=== PATIENT | male | born 1985 | race Caucasian/White ===

== ENCOUNTER 2021-08-08 15:40 | Inpatient (IN) | payer MEDICAID, OTHER ==
[~2021-08-08] VITALS: Ht 177.8 cm; Wt 93.8 kg
[2021-08-08] MEDS ORDERED: MIDAZOLAM DRIP 50 mg/50mL 50 ML IV ONE (15:43)
[2021-08-08] MEDS ORDERED: ETOMIDATE (2MG/ML) 20ML VIAL IV ONE ×3 (15:45→16:00)
[2021-08-08] MEDS ORDERED: MIDAZOLAM DRIP 50 mg/50mL 50 ML IV SCH (15:45)
[2021-08-08] MEDS ORDERED: fentaNYL Drip 2500mCg/250mlNS 250 ML IV SCH (15:45)
[2021-08-08] MEDS ORDERED: SUCCINYLCHOLINE CHLORIDE 20 MG/ML 10ML VIAL IV ONE ×2 (15:51→16:00)
[2021-08-08] MEDS: fentaNYL Drip 2500mCg/250mlNS 250 ML IV SCH (16:00)
[2021-08-08] MEDS: MIDAZOLAM DRIP 50 mg/50mL 50 ML IV SCH (16:00)
[2021-08-08 16:16] LABS: Hematocrit 49.6 % (41.0-53.0); Hemoglobin 16.7 g/dL (13.5-17.5); Mean Corpuscular Hemoglobin 31.2 pg (28.0-32.0); Mean Corpuscular Hgb Conc. 33.6 g/dL (32.0-36.0); Mean Corpuscular Volume 92.7 fL (80.0-100.0); Red Blood Cells 5.35 10^6/uL (4.5-5.90); Red Cell Distribution Width 12.9 % (11.8-14.3); White Blood Cell 22.6 10^3/uL (4.4-10.8)
[2021-08-08 16:19] LABS: Urine Bacteria NONE SEEN /hpf (None Seen); Urine Blood TRACE /uL (Negative); Urine WBC 3 /hpf (0 - 3)
[2021-08-08 16:20] VITALS: BP 153/75
[2021-08-08 16:22] LABS: Basophils % (manual) 0 (0.0-2.0); Blast Cells 0; Myelocytes % 0; Promyelocytes % 0
[2021-08-08 16:33] LABS: Anion Gap 8 (5-15); Blood Urea Nitrogen 12 mg/dL (7-18); Calcium 8.7 mg/dL (8.5-10.1); Carbon Dioxide 21 mmol/L (21-32); Chloride 104 mmol/L (98-107); Glucose 389 mg/dL (74-106); Magnesium 2.7 mg/dL (1.6-2.6); Potassium 3.6 mmol/L (3.5-5.1); Sodium 133 mmol/L (136-145)
[2021-08-08 16:37] LABS: Alanine Aminotransferase 40 U/L (16-61); Alkaline Phosphatase 81 U/L (45-117); Aspartate Aminotransferase 32 U/L (15-37); BUN/Creatinine Ratio 9.7; Bilirubin, Total 0.5 mg/dL (0.2-1.0); GFR African American 84 mL/min; GFR Non-African American 69 mL/min; Total Protein 9.4 g/dL (6.4-8.2)
[2021-08-08 16:44] LABS: Alcohol, Urine < 3.0 mg/dL (0-10); Amphetamine Screen, Urine NEGATIVE (NEGATIVE); Barbiturate Scree,Urine NEGATIVE (NEGATIVE); Benzodiazephine Screen, Urine NEGATIVE (NEGATIVE); Cannabinoid Screen, Urine NEGATIVE (NEGATIVE); Cocaine Screen, Urine NEGATIVE (NEGATIVE); Opiate Scree,Urine NEGATIVE (NEGATIVE); Phencyclidine Screen, Urine NEGATIVE (NEGATIVE)
[2021-08-08 17:58] LABS: Band Neutrophils % (manual) 3; Lymphocytes % (manual) 50 (10.0-50.0); Monocytes % (manual) 10 (0-12)
[2021-08-08 17:59] LABS: Eosinophils % (manual) 7 (0-7); Metamyelocytes % 1; Reactive Lymphocytes 2
[2021-08-08 18:40] VITALS: BP 95/57
[2021-08-08 19:28] VITALS: BP 90/51
[2021-08-08] MEDS: NOREPINEPHRINE 8 MG/250ML KIT 250 ML IV SCH (19:50)
[2021-08-08] MEDS ORDERED: VANCOMYCIN PER PHARMACY 0 MG IV SCH (20:15)
[2021-08-08 20:20] VITALS: BP 88/45
[2021-08-08] MEDS ORDERED: VANCOMYCIN 1,500 MG in D5W 5% 250 ML IV ONE (21:00)
[2021-08-08 22:48] VITALS: BP 92/55
[2021-08-09] VITALS (56 sets, daily range): BP systolic 99–163; BP diastolic 28–91
[2021-08-09] MEDS: ALBUTEROL SULF 2.5 MG/0.5ML(0.5%) NEB SOLN NEB SCH ×4 (00:37→22:08)
[2021-08-09] MEDS: IPRATROPIUM BROM 0.5 MG/2.5ML INH SOL NEB SCH ×4 (00:37→22:09)
[2021-08-09] MEDS: levoFLOXacin 500MG 100 ML IV SCH ×2 (01:26→21:38)
[2021-08-09] MEDS ORDERED: DEXTROSE (50%) 50ML SYRG IV PRN (02:00)
[2021-08-09] MEDS ORDERED: ONDANSETRON HCL 4 MG/2 ML VIAL IV SCH (02:00)
[2021-08-09] MEDS ORDERED: IOHEXOL 350 MG/ML 100ML IJ ONE ×2 (02:10→11:32)
[2021-08-09] MEDS ORDERED: InsuLIN REG 1unit/0.01ml Soln (100units/ml) SC ONE (02:15)
[2021-08-09] MEDS ORDERED: ONDANSETRON HCL 4 MG/2 ML VIAL IV PRN (02:45)
[2021-08-09] MEDS: ACETAMINOPHEN 650 MG RECT SUPP PR PRN ×2 (03:16→20:03)
[2021-08-09 04:38] LABS: Basophils # (auto) 0.1 10 ^3/uL (0-0.2); Basophils % (auto) 0.8 % (0.0-2.0); Eosinophils # (auto) 0.6 10 ^3/uL (0-0.8); Eosinophils % (auto) 4.6 % (0.0-7.0); Hematocrit 42.3 % (41.0-53.0); Hemoglobin 14.7 g/dL (13.5-17.5); Lymphocytes % (auto) 24.4 % (10.0-50.0); Mean Corpuscular Hgb Conc. 34.7 g/dL (32.0-36.0); Mean Corpuscular Volume 89.6 fL (80.0-100.0); Monocytes # (auto) 1.1 10 ^3/uL (0-1.3); Monocytes % (auto) 8.6 % (0.0-12.0); Neutrophils # (auto) 7.5 10 ^3/uL (1.6-8.6); Neutrophils % (auto) 61.6 % (37.0-80.0); Nucleated Red Blood Cells % 0.1 %; Red Blood Cells 4.73 10^6/uL (4.5-5.90); Red Cell Distribution Width 13.3 % (11.8-14.3); White Blood Cell 12.3 10^3/uL (4.4-10.8)
[2021-08-09 04:53] LABS: Calcium 8.5 mg/dL (8.5-10.1); Potassium 3.7 mmol/L (3.5-5.1)
[2021-08-09] MEDS: SODIUM CHLORIDE 0.9% 1,000 ML IV SCH ×3 (05:15→19:54)
[2021-08-09] MEDS ORDERED: methylPREDNISolone SOD SUCC 40 MG/ML VL IV SCH (06:00)
[2021-08-09] MEDS: ACCU-CHEK COMFORT CURVE STRIP VI SCH ×4 (06:07→23:53)
[2021-08-09] MEDS: InsuLIN REG 1unit/0.01ml Soln (100units/ml) SC SCH ×4 (06:13→23:54)
[2021-08-09] MEDS: ENOXAPARIN SOD 40 MG/0.4 ML SYRINGE SC SCH (09:46)
[2021-08-09] MEDS ORDERED: VANCOMYCIN 1GM/250ML 250 ML IV SCH (10:00)
[2021-08-09] MEDS: fentaNYL Drip 2500mCg/250mlNS 250 ML IV SCH (14:04)
[2021-08-09] MEDS: MIDAZOLAM DRIP 50 mg/50mL 50 ML IV SCH (15:23)
[2021-08-09] MEDS: NOREPINEPHRINE 8 MG/250ML KIT 250 ML IV SCH (17:00)
[2021-08-09] MEDS ORDERED: SODIUM CHLORIDE 0.9% 500 ML IV ONE (20:00)
[2021-08-09] MEDS: methylPREDNISolone SOD SUCC 40 MG/ML VL IV SCH (21:38)
[2021-08-09 23:04] LABS: Protein, Urine 140.9 mg/dL (0.0-11.9)
[2021-08-10] VITALS (99 sets, daily range): BP systolic 90–203; BP diastolic 45–103
[2021-08-10 00:03] LABS: Vancomycin,Random 3.9 ug/mL (10-20); Vancomycin,Trough 3.9 ug/mL (10-20)
[2021-08-10] MEDS: MIDAZOLAM DRIP 50 mg/50mL 50 ML IV SCH ×2 (00:24→09:25)
[2021-08-10] MEDS ORDERED: VANCOMYCIN 1GM/250ML 250 ML IV ONE (00:45)
[2021-08-10] MEDS: fentaNYL Drip 2500mCg/250mlNS 250 ML IV SCH (03:45)
[2021-08-10] MEDS: ACCU-CHEK COMFORT CURVE STRIP VI SCH ×3 (05:56→17:42)
[2021-08-10] MEDS: InsuLIN REG 1unit/0.01ml Soln (100units/ml) SC SCH ×3 (05:57→17:45)
[2021-08-10] MEDS: SODIUM CHLORIDE 0.9% 1,000 ML IV SCH ×2 (06:08→15:27)
[2021-08-10] MEDS: ALBUTEROL SULF 2.5 MG/0.5ML(0.5%) NEB SOLN NEB SCH ×3 (06:22→18:31)
[2021-08-10] MEDS: IPRATROPIUM BROM 0.5 MG/2.5ML INH SOL NEB SCH ×3 (06:22→18:31)
[2021-08-10 06:52] LABS: Basophils # (auto) 0 10 ^3/uL (0-0.2); Basophils % (auto) 0.3 % (0.0-2.0); Eosinophils # (auto) 0 10 ^3/uL (0-0.8); Eosinophils % (auto) 0.1 % (0.0-7.0); Hemoglobin 14.7 g/dL (13.5-17.5); Lymphocytes # (auto) 0.8 10 ^3/uL (0.4-5.4); Lymphocytes % (auto) 6.8 % (10.0-50.0); Mean Corpuscular Hemoglobin 31.3 pg (28.0-32.0); Mean Corpuscular Volume 89.3 fL (80.0-100.0); Monocytes # (auto) 0.4 10 ^3/uL (0-1.3); Monocytes % (auto) 3.2 % (0.0-12.0); Neutrophils # (auto) 9.9 10 ^3/uL (1.6-8.6); Neutrophils % (auto) 89.6 % (37.0-80.0); Nucleated Red Blood Cells % 0.3 %; White Blood Cell 11.1 10^3/uL (4.4-10.8)
[2021-08-10 07:27] LABS: Potassium 3.6 mmol/L (3.5-5.1)
[2021-08-10] MEDS: methylPREDNISolone SOD SUCC 40 MG/ML VL IV SCH ×2 (10:23→21:47)
[2021-08-10] MEDS: ENOXAPARIN SOD 40 MG/0.4 ML SYRINGE SC SCH (10:24)
[2021-08-10] MEDS: VANCOMYCIN 1GM/250ML 250 ML IV SCH (15:58)
[2021-08-10] MEDS ORDERED: METOPROLOL TARTRATE 1MG/1ML-5ML VIAL IV PRN (16:00)
[2021-08-10] MEDS: NOREPINEPHRINE 8 MG/250ML KIT 250 ML IV SCH (16:13)
[2021-08-10] MEDS: METOPROLOL TARTRATE 25 MG TAB PO SCH (17:35)
[2021-08-10] MEDS: levoFLOXacin 500MG 100 ML IV SCH (21:46)
[2021-08-11] VITALS (62 sets, daily range): BP systolic 134–179; BP diastolic 72–110
[2021-08-11] MEDS: ACCU-CHEK COMFORT CURVE STRIP VI SCH ×4 (00:37→17:49)
[2021-08-11] MEDS: InsuLIN REG 1unit/0.01ml Soln (100units/ml) SC SCH ×4 (00:40→17:50)
[2021-08-11] MEDS: SODIUM CHLORIDE 0.9% 1,000 ML IV SCH ×2 (02:35→11:03)
[2021-08-11] MEDS: VANCOMYCIN 1GM/250ML 250 ML IV SCH ×2 (04:51→17:19)
[2021-08-11 05:37] LABS: Basophils # (auto) 0 10 ^3/uL (0-0.2); Basophils % (auto) 0.2 % (0.0-2.0); Eosinophils # (auto) 0 10 ^3/uL (0-0.8); Hematocrit 41.8 % (41.0-53.0); Hemoglobin 14.3 g/dL (13.5-17.5); Lymphocytes # (auto) 0.7 10 ^3/uL (0.4-5.4); Lymphocytes % (auto) 5.4 % (10.0-50.0); Mean Corpuscular Hemoglobin 30.8 pg (28.0-32.0); Mean Corpuscular Hgb Conc. 34.2 g/dL (32.0-36.0); Mean Corpuscular Volume 89.9 fL (80.0-100.0); Monocytes # (auto) 0.7 10 ^3/uL (0-1.3); Monocytes % (auto) 5.6 % (0.0-12.0); Neutrophils # (auto) 11.5 10 ^3/uL (1.6-8.6); Neutrophils % (auto) 88.8 % (37.0-80.0); Nucleated Red Blood Cells % 0.1 %; Red Blood Cells 4.65 10^6/uL (4.5-5.90); Red Cell Distribution Width 12.9 % (11.8-14.3)
[2021-08-11 05:52] LABS: Calcium 8.8 mg/dL (8.5-10.1); Potassium 4.1 mmol/L (3.5-5.1)
[2021-08-11] MEDS: IPRATROPIUM BROM 0.5 MG/2.5ML INH SOL NEB SCH ×3 (06:13→18:20)
[2021-08-11] MEDS: ALBUTEROL SULF 2.5 MG/0.5ML(0.5%) NEB SOLN NEB SCH ×3 (06:13→18:20)
[2021-08-11] MEDS: hydrALAZINE HCL 20 MG/ML VL IV PRN (09:11)
[2021-08-11] MEDS: methylPREDNISolone SOD SUCC 40 MG/ML VL IV SCH ×2 (09:11→21:15)
[2021-08-11] MEDS: METOPROLOL TARTRATE 25 MG TAB PO SCH ×2 (09:11→21:15)
[2021-08-11] MEDS: ENOXAPARIN SOD 40 MG/0.4 ML SYRINGE SC SCH (09:11)
[2021-08-11] MEDS: fentaNYL Drip 2500mCg/250mlNS 250 ML IV SCH (15:43)
[2021-08-11] MEDS: MIDAZOLAM DRIP 50 mg/50mL 50 ML IV SCH (15:44)
[2021-08-11] MEDS: NOREPINEPHRINE 8 MG/250ML KIT 250 ML IV SCH (17:00)
[2021-08-11] MEDS: levoFLOXacin 500MG 100 ML IV SCH (21:14)
[2021-08-12] VITALS (15 sets, daily range): BP systolic 133–178; BP diastolic 76–107
[2021-08-12] MEDS: ACCU-CHEK COMFORT CURVE STRIP VI SCH ×4 (00:09→17:58)
[2021-08-12] MEDS: InsuLIN REG 1unit/0.01ml Soln (100units/ml) SC SCH ×4 (00:10→17:58)
[2021-08-12] MEDS: hydrALAZINE HCL 20 MG/ML VL IV PRN (00:14)
[2021-08-12 04:45] LABS: Basophils # (auto) 0.1 10 ^3/uL (0-0.2); Basophils % (auto) 0.4 % (0.0-2.0); Eosinophils # (auto) 0.1 10 ^3/uL (0-0.8); Eosinophils % (auto) 0.3 % (0.0-7.0); Hematocrit 43.6 % (41.0-53.0); Hemoglobin 15.1 g/dL (13.5-17.5); Lymphocytes # (auto) 0.7 10 ^3/uL (0.4-5.4); Lymphocytes % (auto) 4.7 % (10.0-50.0); Mean Corpuscular Hemoglobin 31.3 pg (28.0-32.0); Mean Corpuscular Hgb Conc. 34.5 g/dL (32.0-36.0); Mean Corpuscular Volume 90.6 fL (80.0-100.0); Monocytes # (auto) 0.8 10 ^3/uL (0-1.3); Monocytes % (auto) 4.9 % (0.0-12.0); Neutrophils # (auto) 13.9 10 ^3/uL (1.6-8.6); Neutrophils % (auto) 89.7 % (37.0-80.0); Nucleated Red Blood Cells % 0.1 %; Red Blood Cells 4.81 10^6/uL (4.5-5.90); Red Cell Distribution Width 12.7 % (11.8-14.3); White Blood Cell 15.5 10^3/uL (4.4-10.8)
[2021-08-12 05:14] LABS: Calcium 9.2 mg/dL (8.5-10.1); Potassium 3.8 mmol/L (3.5-5.1)
[2021-08-12] MEDS: VANCOMYCIN 1GM/250ML 250 ML IV SCH ×3 (05:38→23:07)
[2021-08-12] MEDS: ALBUTEROL SULF 2.5 MG/0.5ML(0.5%) NEB SOLN NEB SCH ×4 (06:52→18:30)
[2021-08-12] MEDS: IPRATROPIUM BROM 0.5 MG/2.5ML INH SOL NEB SCH ×4 (06:52→18:30)
[2021-08-12] MEDS: methylPREDNISolone SOD SUCC 40 MG/ML VL IV SCH ×2 (10:11→21:24)
[2021-08-12] MEDS: ENOXAPARIN SOD 40 MG/0.4 ML SYRINGE SC SCH (10:11)
[2021-08-12] MEDS: METOPROLOL TARTRATE 25 MG TAB PO SCH ×2 (10:12→21:25)
[2021-08-12] MEDS: levoFLOXacin 500MG 100 ML IV SCH (21:24)
[2021-08-13] VITALS (7 sets, daily range): BP systolic 132–157; BP diastolic 83–101
[2021-08-13] MEDS: IPRATROPIUM BROM 0.5 MG/2.5ML INH SOL NEB SCH ×4 (00:27→20:52)
[2021-08-13] MEDS: ALBUTEROL SULF 2.5 MG/0.5ML(0.5%) NEB SOLN NEB SCH ×4 (00:27→20:52)
[2021-08-13] MEDS: ACCU-CHEK COMFORT CURVE STRIP VI SCH ×5 (00:40→23:56)
[2021-08-13] MEDS: InsuLIN REG 1unit/0.01ml Soln (100units/ml) SC SCH ×5 (00:48→23:54)
[2021-08-13 06:19] LABS: Potassium 3.7 mmol/L (3.5-5.1)
[2021-08-13 06:22] LABS: Basophils # (auto) 0 10 ^3/uL (0-0.2); Basophils % (auto) 0.1 % (0.0-2.0); Eosinophils # (auto) 0 10 ^3/uL (0-0.8); Hematocrit 43.1 % (41.0-53.0); Hemoglobin 14.9 g/dL (13.5-17.5); Lymphocytes # (auto) 0.8 10 ^3/uL (0.4-5.4); Mean Corpuscular Hemoglobin 31.2 pg (28.0-32.0); Mean Corpuscular Hgb Conc. 34.6 g/dL (32.0-36.0); Mean Corpuscular Volume 90.1 fL (80.0-100.0); Monocytes # (auto) 0.7 10 ^3/uL (0-1.3); Monocytes % (auto) 5.9 % (0.0-12.0); Neutrophils # (auto) 10.5 10 ^3/uL (1.6-8.6); Nucleated Red Blood Cells % 0.1 %; Red Blood Cells 4.78 10^6/uL (4.5-5.90); Red Cell Distribution Width 12.8 % (11.8-14.3)
[2021-08-13 06:23] LABS: Calcium 8.7 mg/dL (8.5-10.1)
[2021-08-13] MEDS: VANCOMYCIN 1GM/250ML 250 ML IV SCH ×2 (06:39→15:27)
[2021-08-13] MEDS: methylPREDNISolone SOD SUCC 40 MG/ML VL IV SCH ×2 (10:07→22:12)
[2021-08-13] MEDS: METOPROLOL TARTRATE 25 MG TAB PO SCH ×2 (10:07→14:15)
[2021-08-13] MEDS: ENOXAPARIN SOD 40 MG/0.4 ML SYRINGE SC SCH (10:07)
[2021-08-13 17:37] LABS: INR 1.27 (0.9-1.15)
[2021-08-13] MEDS ORDERED: LIDOCAINE 1% (LOCAL ANESTH.) PF 5ml SDV ID ONE (19:15)
[2021-08-13] MEDS: levoFLOXacin 500MG 100 ML IV SCH (22:11)
[2021-08-13] MEDS: SODIUM CHLOR 0.9% PF (SALINE LOCK) 10ML VIAL/SYR IV SCH (22:12)
[2021-08-14] MEDS: VANCOMYCIN 1GM/250ML 250 ML IV SCH ×2 (04:42→17:00)
[2021-08-14 04:59] VITALS: BP 159/91
[2021-08-14] MEDS: ACCU-CHEK COMFORT CURVE STRIP VI SCH ×3 (05:55→18:00)
[2021-08-14] MEDS: InsuLIN REG 1unit/0.01ml Soln (100units/ml) SC SCH ×3 (05:58→18:00)
[2021-08-14 06:19] LABS: Basophils # (auto) 0 10 ^3/uL (0-0.2); Basophils % (auto) 0.1 % (0.0-2.0); Eosinophils # (auto) 0 10 ^3/uL (0-0.8); Hematocrit 41.7 % (41.0-53.0); Hemoglobin 14.6 g/dL (13.5-17.5); Lymphocytes # (auto) 0.9 10 ^3/uL (0.4-5.4); Lymphocytes % (auto) 8.3 % (10.0-50.0); Mean Corpuscular Hemoglobin 31.3 pg (28.0-32.0); Mean Corpuscular Hgb Conc. 35.1 g/dL (32.0-36.0); Mean Corpuscular Volume 89.3 fL (80.0-100.0); Monocytes # (auto) 0.7 10 ^3/uL (0-1.3); Neutrophils # (auto) 9.6 10 ^3/uL (1.6-8.6); Neutrophils % (auto) 85.6 % (37.0-80.0); Red Blood Cells 4.67 10^6/uL (4.5-5.90); Red Cell Distribution Width 12.4 % (11.8-14.3); White Blood Cell 11.2 10^3/uL (4.4-10.8)
[2021-08-14 06:37] LABS: BUN/Creatinine Ratio 35.5; Calcium 8.5 mg/dL (8.5-10.1); Potassium 3.8 mmol/L (3.5-5.1)
[2021-08-14] MEDS: ALBUTEROL SULF 2.5 MG/0.5ML(0.5%) NEB SOLN NEB SCH ×2 (07:23→12:04)
[2021-08-14] MEDS: IPRATROPIUM BROM 0.5 MG/2.5ML INH SOL NEB SCH ×2 (07:24→12:04)
[2021-08-14] MEDS ORDERED: MET25T PO (07:24)
[2021-08-14] MEDS ORDERED: PRED20TA2 PO (07:24)
[2021-08-14] MEDS ORDERED: LEVO500T31 PO (07:24)
[2021-08-14] MEDS ORDERED: IPRIH IN (07:24)
[2021-08-14] MEDS ORDERED: ALBUAER3 IN (07:24)
[2021-08-14 09:33] VITALS: BP 157/103
[2021-08-14] MEDS: SODIUM CHLOR 0.9% PF (SALINE LOCK) 10ML VIAL/SYR IV SCH (10:31)
[2021-08-14] MEDS: ENOXAPARIN SOD 40 MG/0.4 ML SYRINGE SC SCH (10:32)
[2021-08-14] MEDS: METOPROLOL TARTRATE 25 MG TAB PO SCH (10:32)
[2021-08-14] MEDS: methylPREDNISolone SOD SUCC 40 MG/ML VL IV SCH (10:32)
[2021-08-14 12:41] VITALS: BP 151/89
[2021-08-14 16:43] VITALS: BP 149/102
== END 2021-08-14 19:45 | disposition home health service (06) | DRG 133 ==
LOC: EDBD 15:40 → ER 15:40 → TELE 23:51 → DOU IN ICU 08-09 10:59 → TELE-WESTW 08-12 13:12
PROVIDERS: ADMIT Hospitalist; ATTEND Hospitalist
PROC: 5A1945Z Respiratory Ventilation, 24-96 Consecutive Hours (ICD-10-PCS; principal; 2021-08-08)
PROC: 0BH17EZ Insertion of Endotracheal Airway into Trachea, Via Natural or Artificial Opening (ICD-10-PCS; 2021-08-08)
PROC: 05HB33Z Insertion of Infusion Device into Right Basilic Vein, Percutaneous Approach (ICD-10-PCS; 2021-08-13)
PROC: B54MZZA Ultrasonography of Right Upper Extremity Veins, Guidance (ICD-10-PCS; 2021-08-13)
DX: J96.01 Acute respiratory failure with hypoxia (principal); N17.0 Acute kidney failure with tubular necrosis; R57.9 Shock, unspecified; G92.8 Other toxic encephalopathy; J18.9 Pneumonia, unspecified organism; J45.901 Unspecified asthma with (acute) exacerbation; G93.1 Anoxic brain damage, not elsewhere classified; J96.02 Acute respiratory failure with hypercapnia; E11.22 Type 2 diabetes mellitus with diabetic chronic kidney disease; K76.0 Fatty (change of) liver, not elsewhere classified; R00.0 Tachycardia, unspecified; N18.2 Chronic kidney disease, stage 2 (mild); E66.9 Obesity, unspecified; D72.829 Elevated white blood cell count, unspecified; J98.11 Atelectasis; I12.9 Hypertensive chronic kidney disease with stage 1 through stage 4 chronic kidney disease, or unspecified chronic kidney disease; Z20.822 Contact with and (suspected) exposure to COVID-19; Z68.30 Body mass index [BMI] 30.0-30.9, adult; Z79.4 Long term (current) use of insulin; Z83.3 Family history of diabetes mellitus; Z88.0 Allergy status to penicillin; E11.65 Type 2 diabetes mellitus with hyperglycemia; A49.01 Methicillin susceptible Staphylococcus aureus infection, unspecified site
CPT/HCPCS: 31500; 36415; 36569; 36600; 70450; 71045; 71275; 76775; 80048; 80053; 80202; 80307; 81001; 82570; 82805; 82962; 83036; 83735; 84156; 84300; 84484; 85007; 85025; 85027; 85379; 85610; 87040; 87070; 87077; 87081; 87086; 87186; 87205; 87426; 92610; 93005; 93306; 93970; 94002; 94003; 94640; 95819; 96361; 96365; 96367; 96372; 97163; 99291; G0378; J0330; J1815; J1956; J2250; J7060